=== PATIENT | male | born 2000 | race Caucasian/White ===

== ENCOUNTER 2021-11-13 15:15 | Emergency (ER) | payer OTHER ==
[~2021-11-13] VITALS: Ht 175.3 cm; Wt 92.1 kg
[2021-11-13 15:39] VITALS: BP_SYST 95
--- NOTE | 2021-11-13 15:52 | NUR ---
NO INTERVENTIONS NEEDED. Patient being evaluated & TREATED by DR FIGUEROA at [facility].
--- NOTE | 2021-11-13 20:14 | NUR ---
PER BAILEY, PT WAS DISCHARGED BY [facility] AT 1620
== END 2021-11-13 16:25 | disposition home or self-care (01) ==
LOC: MED 15:15
DX: S01.91XD Laceration without foreign body of unspecified part of head, subsequent encounter (principal); X58.XXXD Exposure to other specified factors, subsequent encounter
CPT/HCPCS: 99281